=== PATIENT | female | born 1965 ===

== ENCOUNTER 2017-07-29 11:36 | Observation (INO) | payer OTHER ==
--- NOTE | 2017-07-29 12:23 | CT ---
PROCEDURE: CT HEAD WITHOUT CONTRAST. HISTORY: code stroke COMPARISON: None available. TECHNIQUE: Axial computed tomography images were obtained through the head/brain without intravenous contrast. Radiation dose: Total exam DLP = 865.3 mGy-cm. This CT exam was performed using one or more of the following dose reduction techniques: Automated exposure control, adjustment of the mA and/or kV according to patient size, and/or use of iterative reconstruction technique. FINDINGS: HEMORRHAGE: No intracranial hemorrhage. BRAIN: No mass effect or edema. No atrophy or chronic microvascular ischemic changes. VENTRICLES: Unremarkable. No hydrocephalus. CALVARIUM: Unremarkable. PARANASAL SINUSES: Unremarkable as visualized. No significant inflammatory changes. MASTOID AIR CELLS: Unremarkable as visualized. No inflammatory changes. OTHER FINDINGS: None. IMPRESSION: No acute intracranial pathology. Findings conveyed to Dr. Hassan by Dr. Cartagena at 12:20 p.m. on 07/29/2017.
[2017-07-29 12:24] LABS: BASO % 0.3 % (0.0-2.0); EOS # 0.1 K/uL (0.0-0.7); EOS % 0.7 % (0.0-4.0); HEMOGLOBIN 12.5 g/dL (12.0-16.0); LYMPH # 2.4 K/uL (1.0-4.3); LYMPH % 19.3 % (20.0-40.0); MEAN CELL VOLUME 94.4 fl (81.0-99.0); MEAN CORPUSCULAR HEMOGLOBIN 31.2 pg (27.0-31.0); MONO # 0.8 K/uL (0.0-0.8); MONO % 6.1 % (0.0-10.0); NEUT # 9.2 K/uL (1.8-7.0); NEUT % 73.6 % (50.0-75.0); NRBC % 0.1 % (0.0-0.0); RBC 4.01 Mil/uL (3.80-5.20); RED CELL DISTRIBUTION WIDTH 14.4 % (11.5-14.5); WHITE BLOOD COUNT 12.5 K/uL (4.8-10.8)
--- NOTE | 2017-07-29 12:29 | ED PDOC ---
HPI:STROKE - Time Time: 11:00 - Historian Historian: Patient, EMS - Chief Complaint Chief Complaint: Confusion - Onset Date: 07/29/17 Time: 11:00 Onset: Just prior to presenting - Notes: Notes:: 52 year old female who presents to the emergency department via EMS for an evaluation of AMS after patient displayed moderate amnesia and confusion while at the gym prior to arrival, thus, prompting staff to call EMS. Denied any prior incident or head trauma. PMD: none provided rTPA Inclusion/Exclusion - Refusal of Treatment Patient Refused Treatment: No - Inclusion Criteria for Altepase Patient is 18 years or Older: Yes The Clinical Diagnosis of Ischemic Stroke That is Causing a Potentially Disabling Neurological Deficit: No Time of Onset is Well Established to be Less Than 270 Minute Before Treatment Would Begin: Yes Risk/Benefit Discussed With Patient/Family Member Present: Yes - Warning to TPA With Conditions Following Conditions Weighed Against Anticipated Benefit: Yes Condition: Stroke Serevity Too Mild Past Medical History Reviewed: Historical Data, Nursing Documentation, Vital Signs Vital Signs: Last Vital Signs Temp Pulse 82 07/29/17 11:44 Resp 18 07/29/17 11:44 BP 140/94 H 07/29/17 11:44 Pulse Ox 100 07/29/17 11:44 - Surgical History Surgical History: Denies: No Surg Hx Other surgeries: fibroid removal - Family History Family History: States: Unknown Family Hx - Social History Current smoker - smoking cessation education provided: No Ex-Smoker (has not smoked in the last 12 months): No Alcohol: Social Drugs: Denies - Allergies Allergies/Adverse Reactions: Allergies Allergy/AdvReac Type Severity Reaction Status Date / Time No Known Allergies Allergy Verified 07/29/17 13:22 Review of Systems Eyes: Negative for: Vision Change (blurry or double) Neurological: Positive for: Confusion, Altered Mental Status. Negative for: Weakness, Numbness, Headache Physical Exam - Reviewed Nursing Documentation Reviewed: Yes Vital Signs Reviewed: Yes - Physical Exam Appears: Positive for: Well, Non-toxic, No Acute Distress Head Exam: Positive for: ATRAUMATIC, NORMAL INSPECTION, NORMOCEPHALIC Eye Exam: Positive for: EOMI, PERRL, Other (vision intact) Neck: Positive for: Normal, Painless ROM, Supple. Negative for: Decreased ROM Cardiovascular/Chest: Positive for: Regular Rate, Rhythm, Chest Non Tender. Negative for: Murmur Respiratory: Positive for: Normal Breath Sounds. Negative for: Decreased Breath Sounds, Wheezing, Respiratory Distress Gastrointestinal/Abdominal: Positive for: Normal Exam, Soft. Negative for: Tenderness Back: Positive for: Normal Inspection. Negative for: L CVA Tenderness, R CVA Tenderness Extremity: Positive for: Normal ROM (upper/lower). 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 Negative for: Motor/Sensory Deficits - Laboratory Results Result Diagrams: 07/29/17 12:15 07/29/17 12:15 - ECG O2 Sat by Pulse Oximetry: 100 (RA) Pulse Ox Interpretation: Normal Medical Decision Making Medical Decision Making: Initial Impression: Possible CVA Initial Plan: * Type and screen * CT head * EKG * BNP * CMP * Hemoglobin A1C * Lipid panel * Troponin I * CBC * PTT * PT * CXR * MRI brain * Glucose, blood, POC * Urinalysis Time: 1152 --EKG: NSR at [address] changes, T-wave inversion or Q-wave present. --CXR FINDINGS: LUNGS: No active pulmonary disease. PLEURA: No significant pleural effusion identified, no pneumothorax apparent. CARDIOVASCULAR: Normal. OSSEOUS STRUCTURES: No significant abnormalities. VISUALIZED UPPER ABDOMEN: Normal. OTHER FINDINGS: None. IMPRESSION: No active disease. Time: 1210 --Neurology consult with Dr. Montes who does not believe patient to be a TPA candidate based on mild symptoms. --Recommends MRI brain without contrast Time: 1222 --CT head FINDINGS: HEMORRHAGE: No intracranial hemorrhage. BRAIN: No mass effect or edema. No atrophy or chronic microvascular ischemic changes. VENTRICLES: Unremarkable. No hydrocephalus. CALVARIUM: Unremarkable. PARANASAL SINUSES: Unremarkable as visualized. No significant inflammatory changes. MASTOID AIR CELLS: Unremarkable as visualized. No inflammatory changes. OTHER FINDINGS: None. IMPRESSION: No acute intracranial pathology. Time: 1422 --Brain MRI FINDINGS: HEMORRHAGE: None DWI: No evidence of an acute or early subacute infarction. BRAIN PARENCHYMA: There is a small focus of T2/FLAIR hyperintensity in the left anterior parietal subcortical white matter and similar smaller focus in the left posterior temporal subcortical white matter. There is no territorial infarction. There is no mass, mass effect or abnormal extra-axial fluid collection. The midline sagittal structures are normal. VENTRICLES: There is mild global parenchymal volume loss and proportionate enlargement of the ventricles and cortical sulci, advanced for the patient's age. CRANIUM: There is normal bone marrow signal pattern. ORBITS: Grossly unremarkable. PARANASAL SINUSES/MASTOIDS: Predominantly clear. VASCULAR SYSTEM: There are normal signal voids in the larger intracranial arteries. OTHER FINDINGS: None. IMPRESSION: 1. No acute intracranial abnormality. 2. Small foci of white matter changes in the left parietal and posterior temporal subcortical white matter are strictly nonspecific, the differential considerations include migraine headache effect, gliosis, and early chronic microangiopathic changes amongst others. Scribe Attestation: Documented by Hannah Allen, acting as a scribe for Marco Antonio Hassan MD. Provider Scribe Attestation: All medical record entries made by the Scribe were at my direction and personally dictated by me. I have reviewed the chart and agree that the record accurately reflects my personal performance of the history, physical exam, medical decision making, and the department course for this patient. I have also personally directed, reviewed, and agree with the discharge instructions and disposition. Disposition - Clinical Impression Clinical Impression: TIA (transient ischemic attack) Counseled Patient/Family Regarding: Studies Performed, Diagnosis, Need For Followup - Disposition Disposition Time: 15:00 Condition: STABLE Forms: [employer] (Slovenian) - Pt Status Changed To: Hospital Disposition Of: Observation - POA Present On Arrival: None
[2017-07-29 12:38] LABS: ALB/GLOB RATIO 1.3 (1.0-2.1); ALBUMIN 4.4 g/dL (3.5-5.0); ALT/SGPT 43 U/L (9-52); AST/SGOT 47 U/L (14-36); BLOOD UREA NITROGEN 14 mg/dl (7-17); GFR AFRICAN-AMERICAN > 60; GFR NON-AFRICAN AMERICAN > 60; HDL CHOLESTEROL 56 MG/DL (30-70)
[2017-07-29 12:47] LABS: B-TYPE NATRIURETIC PEPTIDE 134 pg/ml (0-900); LDL CHOLESTEROL 87 mg/dL (0-129)
--- NOTE | 2017-07-29 13:06 | RAD ---
HISTORY: code stroke COMPARISON: No prior. FINDINGS: LUNGS: No active pulmonary disease. PLEURA: No significant pleural effusion identified, no pneumothorax apparent. CARDIOVASCULAR: Normal. OSSEOUS STRUCTURES: No significant abnormalities. VISUALIZED UPPER ABDOMEN: Normal. OTHER FINDINGS: None. IMPRESSION: No active disease.
[2017-07-29 13:27] LABS: SQUAMOUS EPITHIAL < 1 /hpf (0-5); URINE BACTERIA RARE (<OCC); URINE BILIRUBIN NEGATIVE (NEGATIVE); URINE BLOOD SMALL (NEGATIVE); URINE CLARITY CLEAR (Clear); URINE COLOR STRAW (YELLOW); URINE GLUCOSE (UA) NEG (Normal); URINE LEUKOCYTE ESTERASE NEG Leu/uL (Negative); URINE NITRATE NEGATIVE (NEGATIVE); URINE PROTEIN NEGATIVE (NEGATIVE); URINE UROBILINOGEN 0.2-1.0 mg/dL (0.2-1.0)
--- NOTE | 2017-07-29 13:30 | CP.PCM.CON ---
History of Present Illness - History of Present Illness History of Present Illness: 52 yr old right handed woman with pmh of prediabetes, and hypothyroidism, who is here for a discrete episode of forgetfulness with confusion and memory loss. The patient was in her [place] exercise class, a class in which she normally participates, and she suddenly felt disoriented and confused. The next thing she remembers, she was in the [place] [facility]. There was no aphasia, no tonic clonic movements, no urinary incontinence, nor have there ever been any prior spells. She denies sleep deprivation, recent change in medications, surgeries, or illicit drug use, or concussion. On exam, the patient has a nonfocal exam. Review of Systems - Review of Systems Systems not reviewed;Unavailable: Altered Mental Status - Neurological Neurological: Behavioral Changes, Dizziness Past Patient History - Past Medical History & Family History Past Medical History?: Yes - Past Social History Smoking Status: Never Smoked Alcohol: Other Drugs: Denies - CARDIAC Hx Cardiac Disorders: No Hx Angina: No Hx Atrial Fibrillation: No Hx Cardia Arrhythmia: No Hx Circulatory Problems: No Hx Congestive Heart Failure: No Hx Heart Attack: No Hx Heart Murmur: No Hx Heart Transplant: No Hx Hypercholesterolemia: No Hx Hypertension: No Hx Hypotension: No Hx Internal Defibrillator: No Hx Mitral Valve Prolapse: No Hx Pacemaker: No - NEUROLOGICAL Hx Dementia: No Hx Dizziness: No Hx Meningitis: No Hx Migraine: No Hx Multiple Sclerosis: No Hx Paralysis: No Hx Parkinson's Disease: No Hx Seizures: No Hx Syncope: No Hx Transient Ischemic Attacks (TIA): No - HEENT Hx Blind: No Hx Cataracts: No Hx Deafness: No Hx Difficulty Chewing: No Hx Epistaxis: No Hx Glaucoma: No Hx Macular Degeneration: No Hx Sinusitis: No - ENDOCRINE/METABOLIC Hx Endocrine Disorders: Yes Hx Hyperthyroidism: Yes Hx Hypothyroidism: Yes - PSYCHIATRIC Hx Substance Use: No - SURGICAL HISTORY Hx Surgeries: Yes Hx Appendectomy: Yes Other/Comment: Fibroid removal - ANESTHESIA Hx Anesthesia: Yes Hx Anesthesia Reactions: No Meds Allergies/Adverse Reactions: Allergies Allergy/AdvReac Type Severity Reaction Status Date / Time No Known Allergies Allergy Verified 07/29/17 13:22 Physical Exam - Head Exam Head Exam: ATRAUMATIC, NORMAL INSPECTION, NORMOCEPHALIC - Eye Exam Eye Exam: EOMI - Expanded Neurological Exam Expanded Neurological exam: Memory Loss-Recent Event Patient oriented to: person, place, time Cranial nerves: EOM's Intact: Normal, Facial Palsey w/Forehead Movement: Normal , Facial Palsey w/o Forehead Movement: Normal, Facial Sensation: Normal, Gag Reflex: Normal, Nystagmus: Normal Ataxia: No Cerebellar Function: Finger to Nose: Normal, Heel to Jimenez: Normal, Romberg: Normal Upper motor neuron: Babinski Sign: Normal Sensory exam: Lower Extremity 2 Point Discrimination: Normal, Lower Extremity Light Touch: Normal, Lower Extremity Pin Prick: Normal, Lower Extremity Temperature: Normal, Upper Extremity 2 Point Discrimination: Normal, Upper Extremity Light Touch: Normal, Upper Extremity Pin Prick: Normal, Upper Extremity Temperature: Normal Neuro motor strength exam: Left Upper Extremity: 5, Right Upper Extremity: 5, Left Lower Extremity: 5, Right Lower Extremity: 5 DTR: Achilles Tendon Left: 1+, Achilles Tendon Right: 1+, Bicep Left: 2+, Bicep Right: 2+, Brachioradialis Left: 2+, Brachioradialis Right: 2+, Patellar Left: 2 +, Patellar Right: 2+, Tricep Left: 2+, Tricep Right: 2+ Coma Scale Verbal: Oriented - Psychiatric Exam Psychiatric exam: Flat Affect Results - Vital Signs Recent Vital Signs: Last Vital Signs Temp Pulse 82 07/29/17 11:44 Resp 18 07/29/17 11:44 BP 140/94 H 07/29/17 11:44 Pulse Ox 100 07/29/17 12:55 - Labs Result Diagrams: 07/29/17 12:15 07/29/17 12:15 Labs: Laboratory Results - last 24 hr 07/29/17 07/29/17 07/29/17 11:42 12:15 12:15 WBC 12.5 H RBC 4.01 Hgb 12.5 Hct 37.8 MCV 94.4 MCH 31.2 H MCHC 33.0 RDW 14.4 Plt Count 281 MPV 8.0 Neut % (Auto) 73.6 Lymph % (Auto) 19.3 L Black[place] % (Auto) 6.1 Eos % (Auto) 0.7 Baso % (Auto) 0.3 Neut # 9.2 H Lymph # 2.4 [place] # 0.8 Eos # 0.1 Baso # 0.0 Sodium 137 Potassium 4.7 Chloride 104 Carbon Dioxide 21 L Anion Gap 17 BUN 14 Creatinine 0.6 L Est GFR ( Amer) > 60 Est GFR (Non-Af Amer) > 60 POC Glucose (mg/dL) 126 H Random Glucose 120 H Calcium 9.0 Total Bilirubin 0.8 AST 47 H ALT 43 Alkaline Phosphatase 55 Troponin I < 0.0120 NT-Pro-B Natriuret Pep 134 Total Protein 7.8 Albumin 4.4 Globulin 3.4 Albumin/Globulin Ratio 1.3 Triglycerides 97 Cholesterol 171 LDL Cholesterol Direct 87 HDL Cholesterol 56 Assessment & Plan - Assessment and Plan (Free Text) Assessment: 52 yr old woman with normal neurological exam and spell that may have been TIA, complex partial seizure, or Transient Global AMnesia PLan: 1. MRI BRain without gadolinium, stroke protocol. IF normal patient may be discharged and obtain EEG outpatient with our office 2. Reevaluate after MRI Brain.
--- NOTE | 2017-07-29 14:24 | MRI ---
PROCEDURE: MRI BRAIN WITHOUT CONTRAST HISTORY: global amnesia COMPARISON: Noncontrast head CT from 07/29/2017. TECHNIQUE: Multiplanar, multisequence MR images of the brain were obtained without intravenous contrast enhancement. FINDINGS: HEMORRHAGE: None DWI: No evidence of an acute or early subacute infarction. BRAIN PARENCHYMA: There is a small focus of T2/FLAIR hyperintensity in the left anterior parietal subcortical white matter and similar smaller focus in the left posterior temporal subcortical white matter. There is no territorial infarction. There is no mass, mass effect or abnormal extra-axial fluid collection. The midline sagittal structures are normal. VENTRICLES: There is mild global parenchymal volume loss and proportionate enlargement of the ventricles and cortical sulci, advanced for the patient's age. CRANIUM: There is normal bone marrow signal pattern. ORBITS: Grossly unremarkable. PARANASAL SINUSES/MASTOIDS: Predominantly clear. VASCULAR SYSTEM: There are normal signal voids in the larger intracranial arteries. OTHER FINDINGS: None. IMPRESSION: 1. No acute intracranial abnormality. 2. Small foci of white matter changes in the left parietal and posterior temporal subcortical white matter are strictly nonspecific, the differential considerations include migraine headache effect, gliosis, and early chronic microangiopathic changes amongst others.
[2017-07-29 15:04] LABS: PARTIAL THROMBOPLASTIN TIME 29.4 Seconds (25.6-37.1); PROTHROMBIN TIME 10.9 Seconds (9.8-13.1)
[2017-07-29 16:34] LABS: BARBITURATES, UR NEGATIVE (NEGATIVE); BENZODIAZEPINES, UR NEGATIVE (NEGATIVE); OPIATES, UR NEGATIVE (NEGATIVE); PHENCYCLIDINE, UR NEGATIVE (NEGATIVE)
--- NOTE | 2017-07-29 17:03 | CP.PCM.HP ---
History of Present Illness - History of Present Illness History of Present Illness: 52 yr old F brought to ED by ambulance for acute episode of AMS during her gym class this morning. PMHx includes hypothyroidism, prediabetes, anxiety and depression. Patient reports she was at the gym and during a "Bar Class" started to feel dizzy. She does not remember what happened after that nor the ambulance ride to the ED. Her career technical education instructor witnessed her episode of AMS and reported that she started to walk away from the exercise class before it was over, he found this odd and when talking to her it seemed she was confused, he proceeded to call an ambulance as she was acting not as herself. Denies syncope, head trauma, weakness, nausea, vomiting or diarrhea. Patient reports she did not eat breakfast before her gym class, she usually does not eat breakfast. Patient reports she has been exercising regularly 3 times a week for the past 3 months. PMD: none Specialists: Wally Boo -Operating Room Orderly LMP: 07/16/17, regular menses OBHx: PMHx: hypothyroidism, prediabetes, anxiety and depression SurgHx: appendectomy, D&C x 2 s/p miscarriage, uterine fibroidectomy FMHx: mother is 74-has NIDDM, father at 60 yrs old from brain cancer, siblings are healthy SocHx: denies smoking, drinks >7 glasses of wine on weekends (fri/sat/sun), denies drugs; lives with , does not work Medications: alternate dose of Levothyroxine 75mcg and Levothyroxine 50 mcg QD, Metformin 500mg PO BID Allergies: NKDA Present on Admission - Present on Admission Any Indicators Present on Admission: No History of DVT/PE: No History of Uncontrolled Diabetes: No Urinary Catheter: No Decubitus Ulcer Present: No History Surgical Site Infection Following: None Review of Systems - Review of Systems All systems: reviewed and no additional remarkable complaints except (for what is mentioned in the HPI) - Constitutional Constitutional: absent: Chills, Headache - EENT Eyes: absent: Blurred Vision, Change in Vision Ears: Dizziness Nose/Mouth/Throat: absent: Nasal Congestion, Nasal Discharge - Cardiovascular Cardiovascular: absent: Chest Pain, Dyspnea - Respiratory Respiratory: absent: Hemoptysis - Gastrointestinal Gastrointestinal: absent: Abdominal Pain, Constipation, Diarrhea - Genitourinary Genitourinary: absent: Difficulty Urinating, Dysuria - Reproductive: Female Reproductive:Female: Normal Menses - Musculoskeletal Musculoskeletal: absent: Arthralgias, Myalgias - Neurological Neurological: absent: Syncope - Psychiatric Psychiatric: Anxiety, Depression - Hematologic/Lymphatic Hematologic: absent: Easy Bleeding, Easy Bruising Past Patient History - Past Medical History & Family History Past Medical History?: Yes - Past Social History Alcohol: Social Drugs: Denies - CARDIAC Hx Cardiac Disorders: No Hx Angina: No Hx Atrial Fibrillation: No Hx Cardia Arrhythmia: No Hx Circulatory Problems: No Hx Congestive Heart Failure: No Hx Heart Attack: No Hx Heart Murmur: No Hx Heart Transplant: No Hx Hypercholesterolemia: No Hx Hypertension: No Hx Hypotension: No Hx Internal Defibrillator: No Hx Mitral Valve Prolapse: No Hx Pacemaker: No - NEUROLOGICAL Hx Dementia: No Hx Dizziness: No Hx Meningitis: No Hx Migraine: No Hx Multiple Sclerosis: No Hx Paralysis: No Hx Parkinson's Disease: No Hx Seizures: No Hx Syncope: No Hx Transient Ischemic Attacks (TIA): No - HEENT Hx Blind: No Hx Cataracts: No Hx Deafness: No Hx Difficulty Chewing: No Hx Epistaxis: No Hx Glaucoma: No Hx Macular Degeneration: No Hx Sinusitis: No - ENDOCRINE/METABOLIC Hx Endocrine Disorders: Yes Hx Hyperthyroidism: Yes Hx Hypothyroidism: Yes - PSYCHIATRIC Hx Substance Use: No - SURGICAL HISTORY Hx Surgeries: Yes Hx Appendectomy: Yes Other/Comment: Fibroid removal - ANESTHESIA Hx Anesthesia: Yes Hx Anesthesia Reactions: No Meds Allergies/Adverse Reactions: Allergies Allergy/AdvReac Type Severity Reaction Status Date / Time No Known Allergies Allergy Verified 07/29/17 13:22 Physical Exam - Constitutional Appears: No Acute Distress - Head Exam Head Exam: ATRAUMATIC, NORMOCEPHALIC - Eye Exam Eye Exam: EOMI, PERRL - ENT Exam ENT Exam: Mucous Membranes Moist - Neck Exam Neck exam: Positive for: Full Rom - Respiratory Exam Respiratory Exam: Clear to Auscultation Bilateral, NORMAL BREATHING PATTERN - Cardiovascular Exam Cardiovascular Exam: REGULAR RHYTHM, +S1, +S2 - GI/Abdominal Exam GI & Abdominal Exam: Normal Bowel Sounds, Soft. absent: Tenderness - Extremities Exam Extremities exam: Positive for: full ROM. Negative for: pedal edema - Back Exam Back exam: absent: CVA tenderness (L), CVA tenderness (R) - Neurological Exam Neurological exam: Alert, CN II-XII Intact, Oriented x3 - Psychiatric Exam Psychiatric exam: Normal Affect, Normal Mood - Skin Skin Exam: Dry, Intact, Normal Color, Warm Results - Vital Signs Recent Vital Signs: Last Vital Signs Temp 98.7 F 07/29/17 16:07 Pulse 78 07/29/17 16:07 Resp 16 07/29/17 16:07 BP 131/64 07/29/17 16:07 Pulse Ox 100 07/29/17 16:16 - Labs Result Diagrams: 07/29/17 12:15 07/29/17 12:15 Labs: Laboratory Results - last 24 hr 07/29/17 07/29/17 07/29/17 11:42 12:15 12:15 WBC 12.5 H RBC 4.01 Hgb 12.5 Hct 37.8 MCV 94.4 MCH 31.2 H MCHC 33.0 RDW 14.4 Plt Count 281 MPV 8.0 Neut % (Auto) 73.6 Lymph % (Auto) 19.3 L Sunflower % (Auto) 6.1 Eos % (Auto) 0.7 Baso % (Auto) 0.3 Neut # 9.2 H Lymph # 2.4 Sunflower # 0.8 Eos # 0.1 Baso # 0.0 PT INR APTT Sodium 137 Potassium 4.7 Chloride 104 Carbon Dioxide 21 L Anion Gap 17 BUN 14 Creatinine 0.6 L Est GFR ( Amer) > 60 Est GFR (Non-Af Amer) > 60 POC Glucose (mg/dL) 126 H Random Glucose 120 H Calcium 9.0 Total Bilirubin 0.8 AST 47 H ALT 43 Alkaline Phosphatase 55 Troponin I < 0.0120 NT-Pro-B Natriuret Pep 134 Total Protein 7.8 Albumin 4.4 Globulin 3.4 Albumin/Globulin Ratio 1.3 Triglycerides 97 Cholesterol 171 LDL Cholesterol Direct 87 HDL Cholesterol 56 Urine Color Urine Clarity Urine pH Ur Specific [place] Urine Protein Urine Glucose (UA) Urine Ketones Urine Blood Urine Nitrate Urine Bilirubin Urine Urobilinogen Ur Leukocyte Esterase Urine RBC (Auto) Urine Microscopic WBC Ur Squamous Epith Cells Urine Bacteria Urine Opiates Screen Urine Methadone Screen Ur Barbiturates Screen Ur Phencyclidine Scrn Ur Amphetamines Screen U Benzodiazepines Scrn U Oth Cocaine Metabols U Cannabinoids Screen 07/29/17 07/29/17 07/29/17 13:03 14:26 15:49 WBC RBC Hgb Hct MCV MCH MCHC RDW Plt Count MPV Neut % (Auto) Lymph % (Auto) Sunflower % (Auto) Eos % (Auto) Baso % (Auto) Neut # Lymph # Sunflower # Eos # Baso # PT 10.9 INR 1.0 APTT 29.4 Sodium Potassium Chloride Carbon Dioxide Anion Gap BUN Creatinine Est GFR ( Amer) Est GFR (Non-Af Amer) POC Glucose (mg/dL) Random Glucose Calcium Total Bilirubin AST ALT Alkaline Phosphatase Troponin I NT-Pro-B Natriuret Pep Total Protein Albumin Globulin Albumin/Globulin Ratio Triglycerides Cholesterol LDL Cholesterol Direct HDL Cholesterol Urine Color Straw Urine Clarity Clear Urine pH 7.0 Ur Specific [place] < 1.005 Urine Protein Negative Urine Glucose (UA) Neg Urine Ketones Negative Urine Blood Small Urine Nitrate Negative Urine Bilirubin Negative Urine Urobilinogen 0.2-1.0 Ur Leukocyte Esterase Neg Urine RBC (Auto) 1 Urine Microscopic WBC 1 Ur Squamous Epith Cells < 1 Urine Bacteria Rare Urine Opiates Screen Negative Urine Methadone Screen Negative Ur Barbiturates Screen Negative Ur Phencyclidine Scrn Negative Ur Amphetamines Screen Negative U Benzodiazepines Scrn Negative U Oth Cocaine Metabols Negative U Cannabinoids Screen Negative Assessment & Plan - Assessment and Plan (Free Text) Assessment: 52 yr old F admitted for acute episode of AMS. 1. Altered Mental Status -acute, improving -likely secondary to TIA vs seizure vs vasovagal reaction -CT head wnl, Brain MRI wnl, CBC: WBC 12.5, rest wnl, EKG wnl, CXR wnl, UA wnl, Utox negative -Neurology consult appreciated-will follow recommendations -f/u labs, carotid duplex 2. Prediabetes -controlled, HbA1c 5.8 -continue home medications: Metformin 500 mg PO BID -moderate carbohydrate diet 3. Hypothyroidism -chronic, controlled -continue home medications: alternate Levothyroxine 75 mcg and Levothyroxine 50 mcg PO QD -f/u TSH 4. Anxiety and Depression -chronic, controlled -will be referred to mental health as outpatient 5. DVT prophylaxis -Lovenox 40mg SC QD - Date & Time Date: 07/29/17 Time: 15:45
[2017-07-30 05:31] VITALS: O2SAT 98
[2017-07-30] MEDS ORDERED: Levothyroxine 75 MCG TAB PO SCH (06:30)
[2017-07-30] MEDS ORDERED: Enoxaparin 40 mg Syringe SC SCH (09:00)
--- NOTE | 2017-07-30 10:09 | CP.PCM.PN ---
Subjective - Date & Time of Evaluation Date of Evaluation: 07/30/17 Time of Evaluation: 10:06 - Subjective Subjective: Ms. Zavala was seen and examined at the bedside. She is alert, oriented in all spheres. She is able to follow simple commands. She denies any blurred vision, dizziness, lightheadedness, numbness, nausea, or vomiting. She states of experiencing mild headache, generalized, with pain scale 2/10. Mri showed no acute intracranial abnormality. There was no untoward events overnight. Objective - Vital Signs/Intake and Output Vital Signs (last 24 hours): Temp Pulse Resp BP Pulse Ox 97.9 F 63 18 102/67 98 07/30/17 07:44 07/30/17 09:00 07/30/17 07:44 07/30/17 07:44 07/30/17 07:44 - Medications Medications: Current Medications Enoxaparin Sodium (Lovenox) 40 mg SC DAILY [facility] PRN Reason: Protocol Last Admin: 07/30/17 09:17 Dose: 40 mg Levothyroxine Sodium (Synthroid) 50 mcg PO TTS@0630 [facility] Levothyroxine Sodium (Synthroid) 75 mcg PO MWF@0630 [facility] Last Admin: 07/30/17 06:02 Dose: 75 mcg Levothyroxine Sodium (Synthroid) 50 mcg PO SUN@0630 [facility] Metformin HCl (Glucophage) 500 mg PO BIDWM [facility] Last Admin: 07/30/17 09:17 Dose: 500 mg - Labs Labs: 07/29/17 12:15 07/29/17 12:15 PT 10.9 Seconds (9.8-13.1) 07/29/17 14:26 INR 1.0 (0.9-1.2) 07/29/17 14:26 APTT 29.4 Seconds (25.6-37.1) 07/29/17 14:26 - Constitutional Appears: No Acute Distress - Head Exam Head Exam: NORMAL INSPECTION - Neurological Exam Neurological Exam: Alert, Awake, CN II-XII Intact, Oriented x3 Neuro motor strength exam: Left Upper Extremity: 5, Right Upper Extremity: 5, Left Lower Extremity: 5, Right Lower Extremity: 5 Additional comments: She is able to follow simple commands and sensation remains intact. Assessment and Plan (1) TIA (transient ischemic attack) Assessment & Plan: Case discussed with Dr. Montes, continue all current medical regimen. Recommend echocardiogram and EEG will be done as an outpatient. Status: Acute
--- NOTE | 2017-07-30 11:05 | CARD ---
APPROVED REPORT EKG Measurement Heart [id number] <Conclusion> Normal sinus rhythm Nonspecific ST and T wave abnormality Abnormal ECG
--- NOTE | 2017-07-30 11:44 | US ---
PROCEDURE: Duplex ultrasound of the carotid and vertebral arteries. HISTORY: s/p acute episode of AMS, possible TIA COMPARISON: None available. TECHNIQUE: Grayscale and duplex Doppler evaluation of the cervical carotid and vertebral arteries were performed. The common carotid, carotid bifurcations and cervical ICA and proximal ECA were evaluated. The vertebral arteries were evaluated for gross patency and direction. FINDINGS: RIGHT CAROTID ARTERIES: Common Carotid Artery: Normal. Maximal flow velocity of 118.1 cm/s. Carotid Bifurcation: Normal. Internal Carotid Artery:Normal. Maximal flow velocity of 160.6 cm/s. External Carotid Artery (proximal branches): Normal. Maximal flow velocity of 98.2 cm/s. ICA/CCA Ratio: 1.9 LEFT CAROTID ARTERIES: Common Carotid Artery: Normal. Maximal flow velocity of 104 cm/s. Carotid Bifurcation: Normal. Internal Carotid Artery:Normal. Maximal flow velocity of 119.3 cm/s. External Carotid Artery (proximal branches): Normal. Maximal flow velocity of 100.2 cm/s. ICA/CCA Ratio: 1.1 VERTEBRAL ARTERIES: Right Vertebral Artery: Patent. Antegrade flow. Left Vertebral Artery: Patent. Antegrade flow. OTHER FINDINGS: None. IMPRESSION: 1. Elevated peak systolic velocity in the mid and distal right internal carotid artery corresponding to 50-69% stenosis. 2. No evidence of hemodynamically significant stenosis in the internal carotid arteries. 3. Patent bilateral vertebral arteries with antegrade flow.
[2017-07-30 12:34] VITALS: BP 108/71; PULSE 67; RESP 20; TEMP 98
--- NOTE | 2017-07-30 13:56 | CARD ---
APPROVED REPORT EXAM: Two-dimensional and M-mode echocardiogram with Doppler and color Doppler. Other Information Quality : AverageRhythm : INDICATION Syncope 2D DIMENSIONS IVSd0.92 (0.7-1.1cm)LVDd3.76 (3.9-5.9cm) PWd1.24 (0.7-1.1cm)IVSs1.38 (0.8-1.2cm) LVDs2.31 (2.5-4.0cm)FS (%) 38.7 % PWs1.55 (0.8-1.2cm)LVEF (%)69.0 (>50%) M-Mode DIMENSIONS Left Atrium (MM)3.09 (2.5-4.0cm)IVSd1.01 (0.7-1.1cm) Aortic Root2.22 (2.2-3.7cm)LVDd4.04 (4.0-5.6cm) Aortic Cusp Exc.1.36 (1.5-2.0cm)PWd0.90 (0.7-1.1cm) IVSs1.27 cmFS (%) 44 % LVDs2.28 (2.0-3.8cm)PWs1.70 cm Mitral Valve MV E Owdvysrk79.8cm/sMV E Peak Gr.65mmHgMV DECEL [id number] MV A Ucydvnnv72.5cm/sMV NEG53irJ/A ratio1.0 MVA (PHT)3.70cm2 TDI Lateral E' Peak V9.04cm/sE/Lateral E'8.3E/Medial E'0.0 Tricuspid Valve TR Peak Dudwpmmk162im/sRAP JNKXPTQE6zoNmFR Peak Gr.19mmHg [id number] LEFT VENTRICLE The left ventricle is normal in size. There is normal left ventricular wall thickness. The left ventricular function is normal. The left ventricular ejection fraction is - 70%. There is normal LV segmental wall motion. Transmitral Doppler flow pattern is Grade I-abnormal relaxation pattern. No left ventricle thrombus noted on this study. There is no ventricular septal defect visualized. There is no left ventricular aneurysm. There is no mass noted in the left ventricle. RIGHT VENTRICLE The right ventricle is normal size. There is normal right ventricular wall thickness. The right ventricular systolic function is normal. ATRIA The left atrium size is normal. There is no thrombus suspected in the left atrium. The right atrium size is normal. The interatrial septum is intact with no evidence for an atrial septal defect. AORTIC VALVE The aortic valve is normal in structure. No aortic regurgitation is present. There is no aortic valvular stenosis. MITRAL VALVE The mitral valve is normal in structure. There is no evidence of mitral valve prolapse. There is no mitral valve stenosis. Mitral regurgitation is mild. TRICUSPID VALVE The tricuspid valve is normal in structure. There is mild tricuspid regurgitation. Right ventricular systolic pressure is estimated at 29 mmHg. There is no tricuspid valve prolapse or vegetation. There is no tricuspid valve stenosis. PULMONIC VALVE The pulmonic valve is not well visualized. There is no pulmonic valvular regurgitation. GREAT VESSELS The aortic root is normal in size. The IVC was not well visualized. PERICARDIAL EFFUSION There is a tiny posterior pericardial effusion. There is no pleural effusion. <Conclusion> The left ventricle is normal in size and wall thickness. The left ventricular function is normal. The left ventricular ejection fraction is - 70%. The left atrium, right ventricle and right atrium are normal in size. The mitral, aortic and tricuspid valves are normal. There is mild regurgitation of the mitral and tricuspid valves.
[2017-07-30] MEDS ORDERED: Magnesium Oxide 400 mg Tab UD PO SCH (17:00)
--- NOTE | 2017-07-30 17:01 | CP.PCM.DIS ---
Provider - Provider Date of Admission: 07/29/17 15:35 Attending physician: Derick Carrera MD Primary care physician: none, will f/u with Dr. Carrera Consults: Dr. Montes-neurology Time Spent in preparation of Discharge (in minutes): 30 Diagnosis - Discharge Diagnosis (1) Transient global amnesia Status: Resolved Priority: Low Hospital Course - Lab Results Lab Results: Most Recent Lab Values WBC 12.5 K/uL (4.8-10.8) H 07/29/17 12:15 RBC 4.01 Mil/uL (3.80-5.20) 07/29/17 12:15 Hgb 12.5 g/dL (12.0-16.0) 07/29/17 12:15 Hct 37.8 % (34.0-47.0) 07/29/17 12:15 MCV 94.4 fl (81.0-99.0) 07/29/17 12:15 MCH 31.2 pg (27.0-31.0) H 07/29/17 12:15 MCHC 33.0 g/dL (33.0-37.0) 07/29/17 12:15 RDW 14.4 % (11.5-14.5) 07/29/17 12:15 Plt Count 281 K/uL (130-400) 07/29/17 12:15 MPV 8.0 fl (7.2-11.7) 07/29/17 12:15 Neut % (Auto) 73.6 % (50.0-75.0) 07/29/17 12:15 Lymph % (Auto) 19.3 % (20.0-40.0) L 07/29/17 12:15 [place] % (Auto) 6.1 % (0.0-10.0) 07/29/17 12:15 Eos % (Auto) 0.7 % (0.0-4.0) 07/29/17 12:15 Baso % (Auto) 0.3 % (0.0-2.0) 07/29/17 12:15 Neut # 9.2 K/uL (1.8-7.0) H 07/29/17 12:15 Lymph # 2.4 K/uL (1.0-4.3) 07/29/17 12:15 [place]pine # 0.8 K/uL (0.0-0.8) 07/29/17 12:15 Eos # 0.1 K/uL (0.0-0.7) 07/29/17 12:15 Baso # 0.0 K/uL (0.0-0.2) 07/29/17 12:15 ESR 11 mm/hr (0-30) 07/30/17 04:15 PT 10.9 Seconds (9.8-13.1) 07/29/17 14:26 INR 1.0 (0.9-1.2) 07/29/17 14:26 APTT 29.4 Seconds (25.6-37.1) 07/29/17 14:26 Sodium 137 mmol/l (132-148) 07/29/17 12:15 Potassium 4.7 MMOL/L (3.6-5.0) 07/29/17 12:15 Chloride 104 mmol/L (98-107) 07/29/17 12:15 Carbon Dioxide 21 mmol/L (22-30) L 07/29/17 12:15 Anion Gap 17 (10-20) 07/29/17 12:15 BUN 14 mg/dl (7-17) 07/29/17 12:15 Creatinine 0.6 mg/dl (0.7-1.2) L 07/29/17 12:15 Est GFR ( Amer) > 60 07/29/17 12:15 Est GFR (Non-Af Amer) > 60 07/29/17 12:15 POC Glucose (mg/dL) 91 mg/dL (65-110) 07/30/17 12:14 Random Glucose 120 mg/dL (65-105) H 07/29/17 12:15 Hemoglobin A1c 5.8 % (4.2-6.5) 07/29/17 13:30 Calcium 9.0 mg/dL (8.4-10.2) 07/29/17 12:15 Total Bilirubin 0.8 mg/dl (0.2-1.3) 07/29/17 12:15 AST 47 U/L (14-36) H 07/29/17 12:15 ALT 43 U/L (9-52) 07/29/17 12:15 Alkaline Phosphatase 55 U/L (38-126) 07/29/17 12:15 Troponin I < 0.0120 ng/mL (0.00-0.120) 07/29/17 12:15 NT-Pro-B Natriuret Pep 134 pg/ml (0-900) 07/29/17 12:15 Total Protein 7.8 G/DL (6.3-8.2) 07/29/17 12:15 Albumin 4.4 g/dL (3.5-5.0) 07/29/17 12:15 Globulin 3.4 gm/dL (2.2-3.9) 07/29/17 12:15 Albumin/Globulin Ratio 1.3 (1.0-2.1) 07/29/17 12:15 Triglycerides 97 mg/DL (0-149) 07/29/17 12:15 Cholesterol 171 mg/dL (0-199) 07/29/17 12:15 LDL Cholesterol Direct 87 mg/dL (0-129) 07/29/17 12:15 HDL Cholesterol 56 MG/DL (30-70) 07/29/17 12:15 TSH 3rd Generation 1.20 mIU/ML (0.46-4.68) 07/30/17 04:15 Urine Color Straw (YELLOW) 07/29/17 13:03 Urine Clarity Clear (Clear) 07/29/17 13:03 Urine pH 7.0 (5.0-8.0) 07/29/17 13:03 Ur Specific [place] < 1.005 (1.003-1.030) 07/29/17 13:03 Urine Protein Negative mg/dL (NEGATIVE) 07/29/17 13:03 Urine Glucose (UA) Neg mg/dL (Normal) 07/29/17 13:03 Urine Ketones Negative mg/dL (NEGATIVE) 07/29/17 13:03 Urine Blood Small (NEGATIVE) 07/29/17 13:03 Urine Nitrate Negative (NEGATIVE) 07/29/17 13:03 Urine Bilirubin Negative (NEGATIVE) 07/29/17 13:03 Urine Urobilinogen 0.2-1.0 mg/dL (0.2-1.0) 07/29/17 13:03 Ur Leukocyte Esterase Neg [place]/uL (Negative) 07/29/17 13:03 Urine RBC (Auto) 1 /hpf (0-3) 01/09/18 13:03 Urine Microscopic WBC 1 /hpf (0-5) 07/29/17 13:03 Ur Squamous Epith Cells < 1 /hpf (0-5) 07/29/17 13:03 Urine Bacteria Rare (<OCC) 07/29/17 13:03 Urine Opiates Screen Negative (NEGATIVE) 07/29/17 15:49 Urine Methadone Screen Negative (NEGATIVE) 07/29/17 15:49 Ur Barbiturates Screen Negative (NEGATIVE) 07/29/17 15:49 Ur Phencyclidine Scrn Negative (NEGATIVE) 07/29/17 15:49 Ur Amphetamines Screen Negative (NEGATIVE) 07/29/17 15:49 U Benzodiazepines Scrn Negative (NEGATIVE) 07/29/17 15:49 U Oth Cocaine Metabols Negative (NEGATIVE) 07/29/17 15:49 U Cannabinoids Screen Negative (NEGATIVE) 07/29/17 15:49 - Hospital Course Hospital Course: 52 yr old F admitted for acute episode of AMS. Episode resolved and patient was evaluated by neurology. Echo, Head CT and Brain MRI were within normal limits. Patient was medically stable for discharge with instructions to follow up with Dr. Carrera within 1 week and take aspirin 81mg PO QD. - Date & Time of H&P Date of H&P: 07/29/17 Time of H&P: 17:03 Discharge Exam - Head Exam Head Exam: ATRAUMATIC, NORMAL INSPECTION, NORMOCEPHALIC - Eye Exam Eye Exam: EOMI - ENT Exam ENT Exam: Mucous Membranes Moist - Neck Exam Neck exam: Full Rom - Respiratory Exam Respiratory Exam: NORMAL BREATHING PATTERN - Cardiovascular Exam Cardiovascular Exam: REGULAR RHYTHM, +S1, +S2 - GI/Abdominal Exam GI & Abdominal Exam: Normal Bowel Sounds. absent: Tenderness - Extremities Exam Extremities exam: full ROM - Neurological Exam Neurological exam: Alert, CN II-XII Intact, Normal Gait, Oriented x3 - Psychiatric Exam Psychiatric exam: Normal Affect, Normal Mood - Skin Skin Exam: Dry, Warm Discharge Plan - Follow Up Plan Condition: STABLE Disposition: HOME/ ROUTINE Instructions: Stroke (DC) Additional Instructions: Follow up with primary doctor in 1-2 weeks and with neurologist in 1 week. Take aspirin 81mg every day. Clinical Quality Measures - Date & Time of Discharge Summary Date of Discharge Summary: 07/30/17 Time of Discharge Summary: 22:22
[2017-07-31] MEDS ORDERED: Levothyroxine 50 MCG TAB PO SCH (06:30)
[2017-08-03] MEDS ORDERED: Levothyroxine 50 MCG TAB PO SCH (06:30)
== END 2017-07-30 15:20 | disposition home or self-care (01) ==
LOC: H.ER 11:36 → H.ERHOLD 15:35 → H.TEL 19:30
PROVIDERS: ADMIT Family Medicine; ATTEND Family Medicine
DX: G45.4 Transient global amnesia (principal); E03.9 Hypothyroidism, unspecified; R73.03 Prediabetes; F32.9 Major depressive disorder, single episode, unspecified; F41.9 Anxiety disorder, unspecified
CPT/HCPCS: 36415; 70450; 70551; 71045; 80053; 80061; 80324; 80345; 80346; 80349; 80353; 80358; 80361; 81003; 81025; 82948; 83036; 83880; 83992; 84443; 84484; 85025; 85610; 85651; 85730; 93005; 93306; 93880; 99285; G0378; J1650